=== PATIENT | male | born 1985 | race Caucasian/White ===

== ENCOUNTER 2018-05-08 20:58 | Emergency (ER) | payer OTHER, SELFPAY ==
[2018-05-08 20:59] VITALS: BP 136/67; PULSE 60; RESP 15; TEMP 37; O2SAT 98; BMI 30.7
--- NOTE | 2018-05-08 22:26 | ED.VIS.GEN ---
History of Present Illness Chief Complaint: Laceration Informant: Patient Onset: Today - JPTA Context: Sudden Onset Timing: Continuous Quality: sore Location: left index finger Current Severity: Mild Maximum Severity: Moderate Worsened by: palpation Relieved by: remaining still Associated Symptoms: bleeding Narrative: Work related injury to his left index finger, accidentally stapled through his finger. It went all the way through. He physically removed it after breaking off the distal piece. No numbness or loss of function. Last tetanus shot was 13 years ago. Right-hand dominant. Past Medical History - Allergies and Home Meds Allergies/Adverse Reactions: Allergies No Known Allergies Allergy (Verified 05/08/18 20:59) Primary Care Physician: Care Physician,No Primary [Primary Care Provider] - Past Medical History: None Smoking Status: Never smoker Review of Systems All systems negative except as indicated Skin: Reports: Wounds - Puncture left index finger Physical Exam Vital Signs/Narrative: Vital Signs Temp Pulse Resp BP Pulse Ox 05/08/18 20:59 98.6 F 60 15 136/67 H 98 Inital Vital Signs reviewed: Yes General: Well nourished, Well developed Head: Normocephalic, Atraumatic Extremities: No edema, Tenderness - Mild at middle phalanx of left index finger, - - Full range of motion left index finger and other fingers. Skin: Normal color, Trauma - Small puncture wounds left index finger, one dorsal and 1 palmar, both are radial to the bone. No active bleeding or discharge. No signs of infection. No foreign body. Neurological: Alert, Oriented x3, Cranial nerves II-XII grossly intact, Normal Strength, Normal Sensation Psychological: Normal affect Diagnostic/Tx/Re-eval - Medical Decision Making No x-ray is needed. This clearly does not involve the bone. Given that it went through his entire finger, I feel it would be safest to put him on a short course of prophylactic antibiotic. His wound/finger was cleansed and dressed with bacitracin. He agrees that he does not need any work restrictions and is okay going back to work tonight. His tetanus was updated. ED Disposition - Plan for ED Patient: Disposition: Home or Assisted Living Chief Complaint: Laceration Diagnosis: Puncture wound of left index finger without foreign body without damage to nail, Immunization, tetanus-diphtheria Instructions: ED Wound Puncture General Prescriptions: Cephalexin 500 mg PO BID #10 cap [facility]errals: [facility] [GROUP OF PHYSICIANS] - 3-5 Days if not improving
--- NOTE | 2018-05-08 22:31 | ED.DCSUM_ITS ---
History of Present Illness Chief Complaint: Laceration Informant: Patient Onset: Today - JPTA Context: Sudden Onset Timing: Continuous Quality: sore Location: left index finger Current Severity: Mild Maximum Severity: Moderate Worsened by: palpation Relieved by: remaining still Associated Symptoms: bleeding Narrative: Work related injury to his left index finger, accidentally stapled through his finger. It went all the way through. He physically removed it after breaking off the distal piece. No numbness or loss of function. Last tetanus shot was 13 years ago. Right-hand dominant. Past Medical History - Allergies and Home Meds Allergies/Adverse Reactions: Allergies No Known Allergies Allergy (Verified 05/08/18 20:59) Primary Care Physician: Care Physician,No Primary [Primary Care Provider] - Past Medical History: None Smoking Status: Never smoker Review of Systems All systems negative except as indicated Skin: Reports: Wounds - Puncture left index finger Physical Exam Vital Signs/Narrative: Vital Signs Temp Pulse Resp BP Pulse Ox 05/08/18 20:59 98.6 F 60 15 136/67 H 98 Inital Vital Signs reviewed: Yes General: Well nourished, Well developed Head: Normocephalic, Atraumatic Extremities: No edema, Tenderness - Mild at middle phalanx of left index finger , - - Full range of motion left index finger and other fingers. Skin: Normal color, Trauma - Small puncture wounds left index finger, one dorsal and 1 palmar, both are radial to the bone. No active bleeding or discharge. No signs of infection. No foreign body. Neurological: Alert, Oriented x3, Cranial nerves II-XII grossly intact, Normal Strength, Normal Sensation Psychological: Normal affect Diagnostic/Tx/Re-eval - Medical Decision Making No x-ray is needed. This clearly does not involve the bone. Given that it went through his entire finger, I feel it would be safest to put him on a short course of prophylactic antibiotic. His wound/finger was cleansed and dressed with bacitracin. He agrees that he does not need any work restrictions and is okay going back to work tonight. His tetanus was updated. ED Disposition - Plan for ED Patient: Disposition: Home or Assisted Living Chief Complaint: Laceration Diagnosis: Puncture wound of left index finger without foreign body without damage to nail , Immunization, tetanus-diphtheria Instructions: ED Wound Puncture General Prescriptions: Cephalexin 500 mg PO BID #10 cap [facility]errals: [facility] [GROUP OF PHYSICIANS] - 3-5 Days if not improving
[2018-05-08] MEDS: Diphth,Pertuss(Acell),Tet Vac 0.5 ML Vial IM (22:43)
== END 2018-05-08 22:47 | disposition home or self-care (01) ==
PROVIDERS: Emergency Provider Emergency Medicine
DX: S61.231A Puncture wound without foreign body of left index finger without damage to nail, initial encounter (principal); W26.8XXA Contact with other sharp object(s), not elsewhere classified, initial encounter; Y93.9 Activity, unspecified; Y92.9 Unspecified place or not applicable; Y99.0 Civilian activity done for income or pay
CPT/HCPCS: 90471; 90715; 99282

== ENCOUNTER → 2024-03-25 | Outpatient (CLI) | payer BC, SELFPAY ==
--- NOTE | 2024-03-25 | VAS_PTH ---
PATIENT: ENE NAGY LOC: [facility] U#:[id number] AGE/SX: 38/M ROOM: RE03/25/[address]: Dr. Jonh Merchant MD : 1985 BED: DIS: 03/25/2024 SPEC #: [id number] RECD: 03/25/24 14:17 STATUS: DMITRY DONOVAN #: [id number] WILLIAM: 03/25/24 00:[address]: Jonh Merchant DEPT: SURGICAL PATHOLOGY RECD BY: Afshan Barry ENTERED: 03/28/24 08:18 SP TYPE: VAS OTHR DR: Kristen Primary Care Phys Tissues: A - Vas deferens, NOS B - Vas deferens, NOS Procedures: Surgery Specimen Level II HEADER OPERATION: Bilateral partial vasectomy PRE-OP DIAGNOSIS: Sterilization TISSUE SUBMITTED: A- Right vas deferens, B- Left vas deferens MICROSCOPIC DIAGNOSIS A. Right vas deferens, segmental vasectomy: Complete cross section of vas deferens with no pathologic change. B. Left vas deferens, segmental vasectomy: Complete cross section of vas deferens with no pathologic change. / 03/29/2024 MICROSCOPIC DESCRIPTION Slides are reviewed. GROSS DESCRIPTION A - Received is one container designated right vas deferens. The specimen consists of a cylindrical segment of pink-patiño soft tissue measuring 0.3 cm in length and 0.2 cm in maximum diameter. The specimen is serially sectioned and totally submitted in one cassette. B - Received is one container designated left vas deferens. The specimen consists of a cylindrical segment of pink-patiño soft tissue measuring 0.3 cm in length and 0.2 cm in maximum diameter. The specimen is serially sectioned and totally submitted in one cassette. / / 03/28/2024 TC:4 CPT: 03564 x2
== END | disposition home or self-care (01) ==
PROVIDERS: Referring Provider Surgery; Visit Provider Surgery
DX: Z30.2 Encounter for sterilization (principal); Z98.52 Vasectomy status
CPT/HCPCS: 88302